=== PATIENT | male | born 1955 | race Caucasian/White ===

== ENCOUNTER 2022-02-22 09:16 | Emergency (ER) | payer OTHER ==
[~2022-02-22] VITALS: Ht 187 cm; Wt 99.7 kg
[2022-02-22 09:33] VITALS: BP 165/105
--- NOTE | 2022-02-22 09:51 | ED Head Injury ---
General Stated Complaint: HEAD INJ AT WORK Source: patient Exam Limitations: no limitations History of Present Illness Date Seen by Provider: Feb 22, 2022 Time Seen by Provider: 09:40 Initial Comments 66-year-old male presents emergency department today for left facial injury while he was at work. This is a work comp injury. He was moving a piece of metal with a bar and the bar slipped, striking him in the left face. He has a large hematoma left malar region. No blurred or double vision. No numbness or tingling in his face. No difficulty with facial muscles or movements. No tinnitus or malocclusion. He did not lose consciousness without any nausea or vomiting. He feels normal with only very minimal pain at the area of the h ematoma. He is not on any blood thinning medications. Last tetanus shot was 5 to 6 years ago Allergies and Home Medications Patient Home Medication List Home Medication List Reviewed: Yes Review of Systems Review of Systems Constitutional: no symptoms reported Eyes: No Symptoms Reported Ears, Nose, Mouth, Throat: no symptoms reported Respiratory: no symptoms reported Cardiovascular: no symptoms reported Gastrointestinal: no symptoms reported Genitourinary: no symptoms reported Musculoskeletal: other (Left facial swelling) Skin: other (Abrasion left face) Psychiatric/Neurological: No Symptoms Reported Endocrine: No Symptoms Reported Hematologic/Lymphatic: No Symptoms Reported Past [id number] Hx Patient Social History Tobacco Use?: Yes Use of E-Cig and/or Vaping dev: No Substance use?: No Alcohol Use?: No Family Medical History Reviewed Nursing Family Hx No Pertinent Family Hx Physical Exam Vital Signs Capillary Refill : Height, Weight, BMI Height: '" Weight: lbs. oz. kg; BMI Method: General Appearance: WD/WN, no apparent distress HEENT: PERRL/EOMI, normal ENT inspection, TMs normal, pharynx normal, other (There is a hematoma on the left malar region. Small abrasion overlying. Extraocular movements are intact with no evidence of entrapment. No bony step- offs, deformity. No malocclusion.) Neck: non-tender, full range of motion, supple, normal inspection Cardiovascular: regular rate, rhythm, no edema, no gallop, no JVD, no murmur Respiratory: chest non-tender, lungs clear, normal breath sounds, no res piratory distress, no accessory muscle use Gastrointestinal: normal bowel sounds, non tender, soft, no organomegaly, no pulsatile mass Extremities: normal range of motion, non-tender, normal inspection, no pedal edema, no calf tenderness Psychiatric: alert, oriented x 3 Skin: normal color, warm/dry, other (Small abrasion overlying left malar hematoma.) Departure Communication (Admissions) Patient is hemodynamically stable. He has no focal neurologic deficits. No loss of consciousness not on blood thinners. No indication for imaging at this time. He has a left facial hematoma. There is no evidence of bony injury no evidence of orbital entrapment. I do not think that radiation exposure is warranted for imaging as this would be a critically low yield and would not change the outcome. He is discharged in stable condition. He is comfortable and agreeable to the current plan of care and all questions were sought and answered Impression Primary Impression: Facial hematoma Qualified Codes: S00.83XA - Contusion of other part of head, initial encounter Disposition: 01 HOME, SELF-CARE Condition: Stable Departure-Patient Inst. Referrals: NO,LOCAL PHYSICIAN (PCP/Family) Primary Care Physician Patient Instructions: Minor Head Injury (DC) Add. Discharge Instructions: Use Motrin and Tylenol as needed for pain. Ice the area. Return to the emergency department for any blurred or double vision, weakness in your face muscles, severe headaches or vomiting, or if your symptoms change in any way concerning to you. ROGER JOSHUA DO Feb 22, 2022 09:51
[2022-02-22] MEDS ORDERED: TETANUS,DIPTH,PERTUSS P/F (BOOSTRIX) 0.5 ML VIAL IM ONE (10:00)
== END 2022-02-22 10:03 | disposition home or self-care (01) ==
LOC: EDUNIT# 09:16 → ER 09:21
DX: S00.83XA Contusion of other part of head, initial encounter (principal); Z23 Encounter for immunization; W18.40XA Slipping, tripping and stumbling without falling, unspecified, initial encounter; W22.8XXA Striking against or struck by other objects, initial encounter; Y92.59 Other trade areas as the place of occurrence of the external cause; Y99.0 Civilian activity done for income or pay
CPT/HCPCS: 90715; 99284